=== PATIENT | male | born 1985 | race Caucasian/White ===

== ENCOUNTER 2022-06-11 17:00 | Emergency (ER) | payer MEDICAID, OTHER ==
[~2022-06-11] VITALS: Ht 185.4 cm; Wt 125.0 kg
[2022-06-11 18:40] VITALS: BP 129/69
[2022-06-11] MEDS ORDERED: IBUP800T27 PO (19:19)
[2022-06-11] MEDS ORDERED: CYCL-837 PO (19:19)
== END 2022-06-11 19:31 | disposition home or self-care (01) ==
LOC: ER 17:00
DX: S39.012A Strain of muscle, fascia and tendon of lower back, initial encounter (principal); S29.012A Strain of muscle and tendon of back wall of thorax, initial encounter; R51.9 Headache, unspecified; V43.62XA Car passenger injured in collision with other type car in traffic accident, initial encounter; Y93.89 Activity, other specified; Y92.89 Other specified places as the place of occurrence of the external cause; Y99.8 Other external cause status

== ENCOUNTER 2024-04-07 08:46 | Emergency (ER) | payer MEDICAID, OTHER ==
[~2024-04-07] VITALS: Ht 185.4 cm; Wt 129.0 kg
[~2024-04-07 08:46] MED LIST: CYCL-837 PO; IBUP-1456 PO
[2024-04-07 09:46] VITALS: BP 120/99; PULSE 89; RESP 16; TEMP 98; O2SAT 96
[2024-04-07] MEDS ORDERED: METH-1181 PO (10:03)
[2024-04-07] MEDS ORDERED: NAPR-746 PO (10:03)
[2024-04-07] MEDS ORDERED: LIDO5DIS21 TOP (10:03)
== END 2024-04-07 10:17 | disposition home or self-care (01) ==
LOC: ER 08:46
DX: R07.89 Other chest pain (principal); Z79.899 Other long term (current) drug therapy; V89.2XXA Person injured in unspecified motor-vehicle accident, traffic, initial encounter; Y93.89 Activity, other specified; Y92.89 Other specified places as the place of occurrence of the external cause; Y99.8 Other external cause status